=== PATIENT | male | born 1975 ===

== ENCOUNTER → 2016-12-14 | Outpatient (CLI) | payer BC ==
[~2016-12-14] MED LIST: PRED20TA PO
[2016-12-14 12:13] VITALS: BP 119/62
--- NOTE | 2016-12-14 12:13 | Urgent Care T Sheet Gen (E) ---
Intake General Temperature (Fahrenheit): 97.8 Pulse: 84 Blood Pressure Systolic: 119 Blood Pressure Diastolic: 62 Respirations: 16 SPO2: 96 Description of Symptoms Patient presents with illness since Monday. Notes nasal congestion and malaise. Not much of a cough. No meds to treat his symptoms. History of Present Illness Home Meds Active Scripts Prednisone 20 Mg [id number] Mg PO DAILY #8 TAB Prov:PETER VELA 12/14/16 Respiratory Constitutional Symptoms: No Fever, Malaise EENTM: Nose Congestion Throat pain Respiratory: No symptoms reportedNo Cough Cardiovascular: No symptoms reported Gastrointestinal/Abdominal: No symptoms reported All Other Systems Reviewed Remaining Systems: All other systems reviewed with negative findings Physical Exam Physical Exam General Appearance: WD/WN No apparent distress (patient appears ill) Eyes, Ears, Nose, Throat Ex: TMs normal Pharyngeal erythema (cobblestone appearance. clear PND) Other (red, swollen nasal turbinates with clear, thin drainage.) Neck Exam: Supple Lymphadenopathy Respiratory Exam: Lungs clear Normal breath sounds Cardiovascular Exam: Regular rate, rhythm Departure Urgent Care Impression Impression: Primary Impression: URI (upper respiratory infection) Qualified Code: J00 - Acute nasopharyngitis [common cold] Departure Disposition: HOME OR SELF-CARE Condition: Stable Additional Instructions: Patient appears to have a viral URI. I have started him on Prednisone x 4 days. This should help with congestion, drainage and malaise. If no better after finishing the steroid, he may then start the Z-Pack. Patient has PCN allergy. Rest. Fluids No NSAIDs while on steroid Return if no better Patient understands DC instructions. All questions were answered. Scripts Prednisone 20 Mg [id number] Mg PO DAILY #8 TAB Prov:PETER VELA 12/14/16 End of report . PETER VELA Dec 14, 2016 10:43
== END ==
LOC: MHUC 10:25
PROVIDERS: ATTEND Physician Assistant
DX: J00 Acute nasopharyngitis [common cold] (principal)
CPT/HCPCS: 99213